=== PATIENT | female | born 1970 | race African-American/Black ===

== ENCOUNTER 2021-06-12 08:12 | Outpatient (CLI) | payer BC, SELFPAY ==
[2021-06-12 08:39] LABS: Basophils Percent Auto 1.1 % (0.2-1.2); Eosinophils Absolute Auto 0.1 K/mm3 (0-0.3); Eosinophils Percent Auto 2.5 % (0-4.4); Hematocrit 38.2 % (37.0-47.0); Hemoglobin 12.1 g/dL (12.0-15.0); Immature Granulocyte Absolute 0.01 K/mm3 (0.00-0.031); Immature Granulocyte Percent A 0.3 % (0-0.5); Lymphocytes Percent Auto 46.3 % (18.3-44.2); Mean Corpuscular HGB Conc 31.7 g/dl (32-36); Mean Corpuscular Hemoglobin 26.7 pg (26-34); Mean Corpuscular Volume 84.3 fl (80-100); Mean Platelet Volume 9.9 fl (7.4-10.4); Monocytes Absolute Auto 0.5 K/mm3 (0.1-0.6); Monocytes Percent Auto 12.5 % (2.6-8.5); Neutrophils Absolute Auto 1.4 K/mm3 (1.3-6.7); Neutrophils Percent Auto 37.3 % (45.5-73.1); Platelet Count Result 271 k/mm3 (150-375); Red Blood Count 4.53 M/mm3 (4.2-5.4); White Blood Count 3.7 K/mm3 (4.5-10.0)
== END 2021-06-12 08:13 | disposition home or self-care (01) ==
LOC: ANHSURGERY 08:18
PROVIDERS: PCP Internal Medicine; Visit Provider Student in an Organized Health Care Education/Training Program
DX: N92.0 Excessive and frequent menstruation with regular cycle (principal); Z01.818 Encounter for other preprocedural examination
CPT/HCPCS: 36415; 85025; 86850; 86900; 86901

== ENCOUNTER 2021-06-13 08:17 | Inpatient (IN) | payer BC, SELFPAY ==
[2021-06-11 15:09] VITALS: BMI 21.9
--- NOTE | 2021-06-11 15:10 | PC.NURSE ---
Report to the Outpatient Waiting Room, entrance under the green pavilion located off [facility], at time _0600 on date _06/13/21 . OR Time: __729 . - You and your visitor will be asked a series of questions to screen for COVID 19 for your protection. - A mask is required within the hospital. - Only one visitor is allowed at this time. Patient visitors will be guided where to wait when not with patient. Preoperative COVID Testing Requirements: No COVID Test needed if: (proof is required; if not received patient will have Rapid Test prior to entry) - Patient has received COVID Vaccine at least 14 days prior to procedure date or - Patient has positive COVID test result within last 90 days of surgery date. COVID Test needed if above criteria is not met If not COVID vaccinated a COVID test must be conducted within 72 hours of surgery and patient is asked to isolate self from time of testing until procedure. You will go to the [facility] for your COVID testing. The [facility] is located at the corner of [address] [facility]. You will only be called if COVID results are positive and your surgeon may reschedule your elective surgery date. Patients may have clear liquids (water, carbonated beverages, clear teas, apple juice) until 3 hours prior to surgery with a maximum of 20 ounces. - No food from midnight until time of surgery - Infants may have breast milk until 4 hours before surgery, formula 6 hours prior to surgery. - Children will be allowed to drink immediately following surgery. If applicable, please bring a bottle or sippy cup to assist with drinking. Juice, water, soda, and popsicles are readily available. For infants on formula, please bring formula the day of surgery. Pacifiers are allowed. Take the following medications with a SIP of water the morning of surgery: NONE Medications to discontinue per physician NONE Date to take last dose Please no make-up, nail serbian, hairspray, perfume, deodorant, or body powder the day of surgery. No jewelry (including any body piercings) or valuables the day of surgery, leave them at home. Please take a shower or bath the night before, or the morning of, surgery with an antibacterial soap. Wear comfortable, loose fitting clothing. Children are encouraged to wear pajamas. - Jewelry must be removed prior to entering the operating room. Rings and piercings that are not removed may be cut off. - The hospital will not accept responsibility for valuables. - Please leave all valuables, including medications, at home the day of surgery. If you are going home after surgery, a licensed regional flatbed truck driver must drive you home. - NO public transportation without another adult. - We recommend that an adult stay with you for 24 hours following discharge. - We also recommend that you do not drive, make important decision, drink alcoholic beverages, or take any drugs that were not prescribed by your health care provider for at least 24 hours after your discharge time. For Pediatric surgeries, we recommend two adults accompany the child home (only one inside the building at this time). Follow any additional instructions given to you from your surgeon. Telephone instructions given to ___PATIENT and asked if any additional questions and then verbalized understanding. Patient advised to call surgeon office or pre surgery nurse liaison [phone] if any additional questions.
--- NOTE | 2021-06-12 16:34 | PM.IMHP ---
H&P: HPI History of Present Illness Date/Time: 06/12/21 16:34 Patient is a 50yo woman with history of fibroid uterus and menorrhagia who presents for a scheduled hysterectomy. Patient has a long history of progressively worsening menorrhagia with saturation of clothing and passage of numerous blood clots. Pelvic US performed showed a large fibroid uterus. Patient was started on hormonal regulation by outside provider, however, still experienced significant heavy bleeding. She also experienced a syncopal episode just prior to menses a few months ago. Denies pelvic pain. Patient was counseled on possible management options and would like to proceed with definitive management with hysterectomy. In general, she reports feeling well today without complaints. Chief Complaint: Fibroid uterus Menorrhagia Review of Systems Review of Systems: All systems reviewed & are unremarkable except as noted in HPI and below Constitutional: Constitutional: Reports as per HPI, Reports no additional constitutional complaints, Denies chills, Denies fever(s), Denies headache(s) and Denies night sweats Eyes: Eyes: Reports as per HPI and Reports no additional eye complaints ENT: Reports system reviewed and no additional complaints, except as documented, Reports as per HPI, Reports Normal hearing present and Denies headache(s) Cardiovascular: Cardiovascular: Reports as per HPI, Reports no additional cardiovascular complaints, Denies chest pain and Denies dyspnea Respiratory: Respiratory: Reports as per HPI, Reports no additional respiratory complaints, Denies cough and Denies dyspnea Gastrointestinal: Gastrointestinal: Reports as per HPI, Reports no additional gastrointestinal complaints, Denies abdominal pain, Denies change in bowel habits, Denies change in stool character, Denies nausea and Denies vomiting Genitourinary: Genitourinary: Reports no additional female genitourinary complaints, Reports as per HPI, Denies abnormal vaginal bleeding, Denies genital lesions, Denies hot flashes, Denies dyspareunia, Denies pelvic pain, Denies sexual dysfunction, Denies urinary incontinence, Denies vaginal discharge, Denies vaginal dryness and Denies vaginal odor Musculoskeletal: Musculoskeletal: Reports no additional musculoskeletal complaints and Reports as per HPI Integumentary/Breasts: Skin/Breast: Reports system reviewed and no additional complaints, except as docu, Reports as per HPI, Denies breast pain and Denies nipple discharge Neurologic: Reports system reviewed and no additional complaints, except as documented, Reports as per HPI, Reports Normal hearing present and Denies headache(s) Psychiatric: Psychiatric: Reports no additional psychiatric complaints, Reports as per HPI, Denies anxiety and Denies depression Endocrine: Endocrine: Reports no additional endocrine complaints and Reports as per HPI Hematologic/Lymphatic: Hematologic/Lymphatic: Reports no additional hematologic/lymphatic complaints and Reports as per HPI Allergic/Immunologic: Allergic/Immunologic: Reports no additional allergic/immunologic complaints and Reports as per HPI PMFSH Past Medical History Medical History Scoliosis Surgical History Surgical History History of back surgery 1986, clamps and rods [place] teeth removed Social History Social History Smoking status: Never smoker Alcohol intake: current Alcohol use details: 1 PER YEAR Substance use: never Meds Home Medications and Allergies Home Medications Medication Instructions Recorded Confirmed Type No Home Medications 06/11/21 06/11/21 History Allergies Allergy/AdvReac Type Severity Reaction Status Date / Time No Known Allergies Allergy Verified 06/11/21 15:02 Exam Const: General: cooperative, healthy appearing, comfortable and no acute dist
[2021-06-13] VITALS (14 sets, daily range): BP systolic 119–175; BP diastolic 59–83; PULSE 79–100; RESP 14–20; TEMP 36.2–37.1; O2SAT 99–100
[2021-06-13] MEDS: ACETAMINOPHEN 500 MG TABLET 1000 MG PO (06:25)
[2021-06-13] MEDS: LACTATED RINGERS 1,000 ML 30 ML IV CONT ×2 (06:40→09:10)
[2021-06-13] MEDS: KETOROLAC 15 MG/ML VIAL (*BKC) IV PUSH (06:42)
--- NOTE | 2021-06-13 07:06 | P.PNAN_ITS ---
Anes - Initial Pre Proc Eval Procedure: Operation Date: 06/13/21 07:30 Proposed Procedures p Total Abdominal Hysterectomy with Bilateral Salpingectomy, Possible Bilateral Salpingo-Oophorectomy - Nara Walden MD Date/Time: 06/13/21 07:06 Surgeon: Nara Walden MD Pre Op Diagnosis: Abnormal Uterine Bleeding, Menorrhagia Patient Data Age: 50 Gender: F Height: 1.51 m Weight: 50 kg Allergies Allergy/AdvReac Type Severity Reaction Status Date / Time No Known Allergies Allergy Verified 06/13/21 06:19 Home Medications Medication Instructions Recorded Confirmed Type No Home Medications 06/11/21 06/11/21 History Patient hx anesthesia problems: none Family hx anesthesia problems: none Results Review: All pre-operative results and documents have been reviewed as part of the pre-operative evaluation. FORMERLY [facility], [facility] Past Medical History Medical History Scoliosis Surgical History Surgical History History of back surgery 1986, clamps and rods [place] teeth removed Social History Social History Smoking status: Never smoker Alcohol intake: current Alcohol use details: 1 PER YEAR Substance use: never Living arrangements: with family Anes - Eval Final PreProcedure Day of Procedure 06/13/21 07:06 Patient weight: normal Heart: regular rate and rhythm Lungs: clear to auscultation Airway: Mallampati scale class II Neurological: alert and oriented Last oral intake: >/= 8 hours ASA classification: II Emergent: no Anesthetic plan: proceed Anesthesia type and monitoring: general ETT and standard monitoring Results Review: All pre-operative results and documents have been reviewed as part of the pre-operative evaluation. Informed Consent: The patient's anesthetic plan and its attendant risks and benefits were discussed with the patient/family/POA. Questions were solicited and answers provided to the satisfaction of the patient/family/POA.
--- NOTE | 2021-06-13 07:10 | WPDHPUPDATE1 ---
History and Physical Update Update Date/Time: 06/13/21 07:10 Possible bilateral oophorectomy History and Physical has been reviewed, including an updated exam of the patient. There are NO changes in the patient's condition. Risks, benefits, and alternatives have been discussed and questions answered. Patient agrees to proceed with procedure.
[2021-06-13] MEDS: ceFAZolin 2 GM/D5W 50 ML 2 GM/50 ML BAG IVPB (07:24)
--- NOTE | 2021-06-13 09:54 | SUR.PHASEI ---
Simple mask removed at 0967.
--- NOTE | 2021-06-13 10:09 | W.PM.PROC2 ---
Procedure Note - Detailed Date of Procedure 06/13/21 Pre-op Diagnosis Abnormal Uterine Bleeding, Menorrhagia Fibroid uterus Post-op Diagnosis same Procedure Performed Total abdominal hysterectomy Bilateral salpingectomy Surgeon Nara Walden MD Coverstitch Elastic Attacher [facility] Anesthesia general Findings Approx. 16 week sized irregularly shaped uterus with multiple fibroids, normal appearing ovaries and fallopian tubes bilaterally, small 1cm left paratubal cyst noted Description of Procedure The patient was taken to the operating room where she self transferred to the operating room table. She was placed in the dorsal supine position. General anesthesia was administered and found to be adequate. A king catheter was placed using aseptic technique. The patient was prepped and draped in the usual sterile fashion. A Pfannenstiel skin incision was made with a scalpel and carried through to the underlying layer of fascia with the Bovie. The fascia was incised in the midline and the incision was extended laterally with the use of forceps and Addison scissors. The inferior aspect of the fascial incision was grasped with Heidi clamps, elevated, and the underlying rectus muscles were dissected off with Addison scissors. Attention was turned to the superior aspect of the fascial incision, which in a similar manner was grasped with Heidi clamps, elevated, and the underlying rectus muscles also dissected off with Addison scissors. The rectus muscles were gently retracted and the peritoneal cavity was entered bluntly. The peritoneal cavity was gently stretched. The uterus was palpated beneath and was approx. 16w size and very irregularly shaped with multiple fibroids noted. The uterus was grasped and elevated through the incision. On inspection, the uterus was irregularly shaped with multiple fibroids of various sizes on all sides. The ovaries and fallopian tubes appeared normal bilaterally. A small 1cm paratubal cyst was seen on left side. A pean clamp was placed near the right uterine cornua for traction and elevation. The right round ligament was identified, grasped with Donnellson clamp, and suture ligated. The round ligament was transected with Bovie. The anterior leaf of the broad ligament was carefully dissected towards the midline to begin creation of bladder flap. The right fallopian tube was identified and grasped with a Ok clamp. The LigaSure device was used to transect the mesosalpinx beneath the tube to the level of the cornua. An incision in the posterior leaf of the broad ligament on the right side was created with the Bovie. The LigaSure device was then used to transect the utero-ovarian ligament on the right side. Dissection of the posterior leaf of the broad ligament was performed. The uterine artery was well skeletonized and cauterized with the LigaSure. Attention was then turned to the patient's left side. A pean clamp was placed near the left uterine cornua for traction and elevation. The left round ligament was identified, grasped with a Donnellson clamp, and suture ligated. The round ligament was transected with the Bovie and the anterior leaf of the broad ligament was carefully dissected towards the midline. The opposing ends were joined in the midline and careful dissection was performed to displace the bladder inferiorly. Dissection was primarily performed with the use of bovie and gauze. The bladder was depressed inferiorly well below the level of the anterior cervix. The left fallopian tube was identified and grasped with Ok clamp. The LigaSure device was used to transect the mesosalpinx beneath the tube to the level of the cornua. The LigaSure device was then used to transect the utero-ovarian ligament on the left side. Dissection of the posterior leaf of the broad ligament was performed and the uterine artery was skeletonized and well visualized. The LigaSure device was then used to cauterize the uterine artery on the left side. The cardinal ligaments we
--- NOTE | 2021-06-13 10:27 | SUR.PHASEI ---
Patient's vitals are stable and has met criteria to go to the floor, but I still don't have any orders.
--- NOTE | 2021-06-13 11:28 | PC.NURSE ---
This patient, Lluvia Townsend, was received from PACU per bed on 06/13/21 at 1128. Patient sleeping, but able to arouse in order to orient to unit and routines
[2021-06-13] MEDS: DEXTROSE 5%/0.45% SOD CHL 1,000 ML 125 ML IV CONT ×2 (12:30→21:02)
[2021-06-13] MEDS: IBUPROFEN IV 800 MG/200 ML 800 MG/200 ML BAG 400 MG IVPB ×2 (12:31→18:30)
[2021-06-14 00:25] VITALS: BP 95/47; PULSE 109; RESP 16; TEMP 36.9; O2SAT 99
[2021-06-14] MEDS: ONDANSETRON INJ 4 MG/2 ML VIAL IV PUSH (01:08)
[2021-06-14] MEDS: IBUPROFEN IV 800 MG/200 ML 800 MG/200 ML BAG 400 MG IVPB ×2 (01:17→06:59)
[2021-06-14] MEDS: DEXTROSE 5%/0.45% SOD CHL 500 ML 999 ML IV CONT (01:54)
[2021-06-14] MEDS: DEXTROSE 5%/0.45% SOD CHL 1,000 ML 125 ML IV CONT (02:19)
[2021-06-14 03:45] VITALS: BP 85/47; PULSE 114; RESP 16; TEMP 37.7; O2SAT 100
[2021-06-14] MEDS: HYDROmorphone HCL INJ (*CRX) 1 MG/ML SYR 0.2 MG IV PUSH (04:27)
[2021-06-14] MEDS: SODIUM CHLORIDE 0.45% 500 ML 999 ML IV CONT (04:33)
[2021-06-14 06:45] VITALS: BP 108/57; PULSE 97; RESP 18; TEMP 36.8
--- NOTE | 2021-06-14 08:37 | PC.NURSE ---
Dr. Walden here to see pt. Update given. Advised to increase IV fluids to 150 cc/hr for better urine output.
--- NOTE | 2021-06-14 08:49 | PM.GYNPNOP ---
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 Assessment and plan (1) S/P abdominal hysterectomy: Code(s): Z90.710 - Acquired absence of both cervix and uterus Status: Acute Assessment and Plan: POD#1 doing well encourage ambulation and use of IS advance diet as tolerated continue IV fluids for now until increased PO intake continue to monitor I/O, output adequate, however, low normal pain management PRN Postoperative Procedures: Procedures Operation Date: 06/13/21 07:30 Actual Procedure Side Surgeon p Total Abdominal Hysterectomy with Bilateral Salpingectomy Bilateral Nara Walden MD Time Spent With Patient Time: Total time spent is greater than 50% in coordination of care (as documented) at patient's floor/unit and/or counseling patient: Time with patient: less than 15 minutes HARDBOARD FACTORY WORKER- PN:Subj Post-Op Subjective Date/time seen: 06/14/21 08:49 Patient reports right sided pain overnight, alleviated with IV medication. She also reported feeling slightly dizzy last night as well. This morning, patient denies any further dizziness or pain. She denies any headache, chest pain, SOB, nausea or vomiting. Small amount of clear fluid intake last night. Warner catheter in place. No flatus. No ambulation yet. Exam Const: General: cooperative, healthy appearing, comfortable and no acute distress GI: GI Palp: Yes Soft to palpation and No Tenderness to palpation present (GI) Other: softly distended incision c/d/i Extrem: Right lower extremity: no edema Left lower extremity: no edema Other: no calf tenderness HARDBOARD FACTORY WORKER - PN: Obj Data Vital Signs Vital Signs: Vital Signs - 24 hr 06/13/21 09:10 06/13/21 09:25 06/13/21 09:30 Temperature 36.2 C L Pulse Rate 79 84 94 Respiratory Rate 14 14 16 Blood Pressure 119/70 128/73 125/77 Pulse Oximetry 100 100 100 06/13/21 09:40 06/13/21 09:55 06/13/21 10:10 Temperature Pulse Rate 90 95 91 Respiratory Rate 14 18 20 Blood Pressure 138/70 155/82 H 147/76 H Pulse Oximetry 100 99 99 06/13/21 10:25 06/13/21 10:40 06/13/21 10:55 Temperature Pulse Rate 89 90 86 Respiratory Rate 16 17 16 Blood Pressure 153/65 H 154/59 H 150/62 H Pulse Oximetry 99 99 99 06/13/21 11:05 06/13/21 11:35 06/13/21 17:20 Temperature 37.1 C 36.4 C L Pulse Rate 86 88 92 Respiratory Rate 14 16 18 Blood Pressure 151/60 H 154/68 H 122/59 L Pulse Oximetry 99 100 06/13/21 18:36 06/14/21 00:25 06/14/21 03:45 Temperature 36.9 C 36.9 C 37.7 C H Pulse Rate 100 109 H 114 H Respiratory Rate 16 16 16 Blood Pressure 132/72 95/47 L 85/47 L Pulse Oximetry 99 100 06/14/21 06:45 Temperature 36.8 C Pulse Rate 97 Respiratory Rate 18 Blood Pressure 108/57 L Pulse Oximetry Intake/Output Intake/Output: Intake & Output 06/11/21 06/12/21 06/13/21 06/14/21 23:59 23:59 23:59 23:59 Intake Total 3750 1400 Output Total 1005 405 Balance 2745 995 Meds/Results Medications: Active Medications Generic Name Dose Route Start Last Admin Trade Name Freq PRN Reason Stop Dose Admin Dextrose/Sodium Chloride 1,000 mls @ 150 mls/hr 06/13/21 11:10 06/14/21 02:19 Dextrose 5% Sodium Chloride 0.45% IV CONT 125 mls/hr .[id number] PENELOPE Administration Ondansetron HCl 4 mg 06/13/21 11:10 06/14/21 01:08 Ondansetron Inj 4 Mg/2 Ml Vial IV PUSH 4 mg Q6H PRN Administration Nausea
--- NOTE | 2021-06-14 10:28 | WPDANESPN ---
Anes - Prog Note Post-Op Date/Time: 06/14/21 10:28 Cardiovascular status: normal Respiratory status: normal Airway patency: baseline Mental status: baseline Post-Op hydration status: normal Vital Signs: Last Vital Signs Temp 36.8 C 06/14/21 06:45 Pulse 97 06/14/21 06:45 Resp 18 06/14/21 06:45 BP 108/57 L 06/14/21 06:45 Pulse Ox 100 06/14/21 03:45 Pain Score (VAS): 2/10 I/O: Intake & Output 06/13/21 06/14/21 06/14/21 23:59 07:59 15:59 Intake Total 1400 1400 Output Total 925 405 Balance 475 995 Post-procedural complaints: none Patient Feedback: Patient satisfied with anesthetic care.
[2021-06-14 14:00] VITALS: BP 108/60; PULSE 117; RESP 18; TEMP 36.9
[2021-06-14 19:40] VITALS: BP 131/69; PULSE 122; RESP 18; TEMP 36.8
[2021-06-14] MEDS: SIMETHICONE 80 MG TAB.CHEW PO (19:49)
[2021-06-15 00:20] VITALS: BP 110/48; PULSE 115; RESP 16; TEMP 37
[2021-06-15] MEDS: IBUPROFEN 600 MG TABLET PO (01:17)
--- NOTE | 2021-06-15 07:19 | P.PNOB_ITS ---
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 No hypovolemic symptoms. Urinating well. No hypovolemic symptoms. Will discharge today. Discharge precautions discussed. Postoperative Procedures: Procedures Operation Date: 06/13/21 07:30 Actual Procedure Side Surgeon p Total Abdominal Hysterectomy with Bilateral Salpingectomy Bilateral Nara Walden MD Time Spent With Patient Time: Total time spent is greater than 50% in coordination of care (as documented) at patient's floor/unit and/or counseling patient: Time with patient: less than 15 minutes BIOMETRICS TECHNICIAN- PN:Subj Post-Op Subjective Date/time seen: 06/15/21 07:19 She states positive flatus yesterday. Has ambulated without problems. No chest pain or SOB. No lightheadedness or dizziness. Has adequate pain control. Had episode of emesis yesterday. Has had regular diet since and tolerated no emesis. Good urine output. Exam Const: General: comfortable and no acute distress Eyes: General: appearance normal, both eyes and all related structures Resp: Effort & Inspection: normal respiratory effort Auscultation: clear to auscultation bilaterally Cardio: Rate: regular rate (mildly tachy) GI: Inspection: normal to inspection Other: nontender, nondistended, good BS throughout, incision c/d/i Extrem: General: normal to inspection Other: no edema, no calf tenderness BIOMETRICS TECHNICIAN - PN: Obj Data Vital Signs Vital Signs: Vital Signs - 24 hr 06/14/21 14:00 06/14/21 19:40 06/15/21 00:20 Temperature 98.5 F 98.3 F 98.6 F Pulse Rate 117 H 122 H 115 H Respiratory Rate 18 18 16 Blood Pressure 108/60 131/69 110/48 L Intake/Output Intake/Output: Intake & Output 06/12/21 06/13/21 06/14/21 06/15/21 23:59 23:59 23:59 23:59 Intake Total 3750 2100 0 Output Total 1005 1710 350 Balance 2745 390 -350 Meds/Results Medications: Active Medications Generic Name Dose Route Start Last Admin Trade Name Freq PRN Reason Stop Dose Admin Hydrocodone Bitart/Acetaminophen 1 tab 06/14/21 08:58 Hydrocodone/Acetaminophen (*Crx) 5-325 Mg Tablet PO Q4H PRN Pain Rated 4-6 Ibuprofen 600 mg 06/14/21 08:58 06/15/21 01:17 Ibuprofen 600 Mg Tablet PO 600 mg Q6H PRN Administration Pain Rated 1-3 Ondansetron HCl 4 mg 06/13/21 11:10 06/14/21 01:08 Ondansetron Inj 4 Mg/2 Ml Vial IV PUSH 4 mg Q6H PRN Administration Nausea Simethicone 80 mg 06/14/21 09:00 06/14/21 19:49 Simethicone 80 Mg Tab.Chew PO 80 mg QID PRN Administration Abdominal Distention
[2021-06-15 07:28] VITALS: BP 104/56; PULSE 116; RESP 12; TEMP 36.6; O2SAT 100
--- NOTE | 2021-06-15 07:29 | PM.DS ---
DS: Admitting Diagnosis Discharge Date 06/15/21 Admitting Diagnosis Symptomatic fibroid uterus DS: Discharge Diagnosis Discharge Diagnosis (1) Fibroid uterus: Code(s): D25.9 - Leiomyoma of uterus, unspecified Status: Acute (2) Menorrhagia: Code(s): N92.0 - Excessive and frequent menstruation with regular cycle Status: Acute (3) S/P abdominal hysterectomy: Code(s): Z90.710 - Acquired absence of both cervix and uterus Status: Acute DS: Summary Hospital Course Reason for hospitalization: Scheduled surgery for symptomatic fibroid uterus. Hospital Course: Patient underwent uncomplicated abdominal hysterectomy. Post op she had tachycardia and low blood pressures, asymptomatic, good urine output. On post op day one she had positive flatus. She was ambulating without difficulty and tolerating regular diet. Pain was controlled with the oral pain medication. She was discharge to home on post op day 2. Status at Discharge Functional status at discharge: independent ambulation Overall status at discharge: patient is progressing back to baseline Time Spent with Patient Time attestation: Total time spent providing and/or coordinating discharge services: Exam Const: General: comfortable and no acute distress Orientation/consciousness: oriented to person, oriented to place and oriented to time Eyes: General: appearance normal, both eyes and all related structures Resp: Effort & Inspection: normal respiratory effort Auscultation: clear to auscultation bilaterally Cardio: Rate: regular rate and tachycardic GI: Inspection: normal to inspection Other: good bowel sounds, incision c/d/i Neuro: General: oriented to person, oriented to place and oriented to time Extrem: General: normal to inspection and no calf tenderness Psych: Appearance: grossly normal DS: Data Data Completed and Pending Pending studies at discharge: Pending at discharge 06/13/21 08:56 Surgical [PTH] Routine Discharge Plan Discharge Attending physician on discharge: Nara Walden Consulting providers: Remy Penn Discharging Clinician: Christiano Shahid Anticipated Discharge Date/Time: 06/15/21 07:24 Patient Disposition: Home, Self-Care Activity: no straining, no driving and pelvic rest Diet: regular Wound Care Instructions: other - see discharge instructions Discharge Instructions: Call for fever, vaginal bleeding, leg pain or swelling, persistent nausea/vomiting. Keep follow up appointment. Patient Instructions: Antibiotic Form Stand Alone Forms: General Discharge Information Follow-up/Referrals: Nara Walden MD [Physician] - Keep Reg. Scheduled Appt. Discharge Medications: New hydrocodone-acetaminophen 5-325 mg Tablet 1 tablet PO Q4H PRN (Reason: Pain Rated 4-6) Qty: 30 RF: 0 No Action No Home Medications RF: 0 Date of admission: 06/13/21 08:17 Primary Care Provider: CARLIN,YASMIN [place] Admitting Provider: Nara Walden Attending physician on admission: Nara Walden Condition: Stable
== END 2021-06-15 11:55 | disposition home or self-care (01) | DRG 743 ==
LOC: ANHOB2 11:41
PROVIDERS: Admitting Provider Student in an Organized Health Care Education/Training Program; PCP Internal Medicine; Visit Provider Student in an Organized Health Care Education/Training Program
PROC: 0UT94ZZ Resection of Uterus, Percutaneous Endoscopic Approach (ICD-10-PCS; principal; 2021-06-13 07:30)
DX: D25.9 Leiomyoma of uterus, unspecified (principal); N92.0 Excessive and frequent menstruation with regular cycle; N83.8 Other noninflammatory disorders of ovary, fallopian tube and broad ligament
CPT/HCPCS: 88307; A9270; J0131; J0690; J1100; J1170; J1741; J1885; J2250; J2405; J2704; J2710; J3010; J7120

== ENCOUNTER 2022-01-22 12:44 | Emergency (ER) | payer BC, SELFPAY ==
[2022-01-22 12:53] VITALS: BP 162/85; PULSE 87; RESP 16; TEMP 36.9; O2SAT 100
--- NOTE | 2022-01-22 13:17 | ED.EAR ---
HPI - Ear Problem General Chief complaint: Ear Stated complaint: Ear Pain Time Seen by Provider: 01/22/22 13:17 Source: patient Mode of arrival: ambulatory Limitations: no limitations History of Present Illness HPI Narrative: 51-year-old female presents with complaint of right ear pain. Reports drainage, decreased hearing. Afebrile. Denies any recent swimming. All systems reviewed and negative except as noted above. Related Data Allergies Allergy/AdvReac Type Severity Reaction Status Date / Time No Known Allergies Allergy Verified 01/22/22 13:02 Review of Systems Review of Systems: CONSTITUTIONAL: Denies fever, chills, or sweats. EYES: Denies visual changes, redness, or discharge. ENT: Denies rhinorrhea, congestion, sore throat. Reports right ear pain. CARDIOVASCULAR: Denies chest pain, palpitations, or edema. RESPIRATORY: Denies cough or dyspnea. GASTROINTESTINAL: Denies abdominal pain, nausea, vomiting, or diarrhea. GENITOURINARY: Denies dysuria or hematuria. SKIN: Denies rash or itching. MUSCULOSKELETAL: Denies back pain, joint pain, or myalgia. NEUROLOGIC: Denies headache, numbness, or weakness. PSYCHIATRIC: Denies anxiety or depression. All other systems reviewed are negative, except as documented in HPI. PMFSH Past Medical History Medical History Scoliosis Surgical History Surgical History History of back surgery 1986, clamps and rods S/P abdominal hysterectomy 06/13/21 [place] teeth removed Social History Social History Smoking status: Never smoker Alcohol intake: current Alcohol use details: 1 PER YEAR Substance use: never Comments At time of signature, agree with nursing past medical, surgical, social and family history. There is no relevant family history pertinent to the presenting complaint. Exam Narrative: GENERAL: This is a well-nourished, well-developed patient, in no apparent distress. HEAD: normocephalic, atraumatic. EYES: PERRL. Sclera clear/white. Vision is grossly intact. EARS: External ears normal. Left ear canal and left TM normal. Right canal is erythematous, swollen completely closed, cannot evaluate TM. NOSE: External nose normal NECK: Neck supple, non-tender without lymphadenopathy, masses or thyromegaly. CARDIOVASCULAR: Regular rate and rhythm without murmurs, gallops, or rubs. RESPIRATORY: Clear to auscultation. Breath sounds equal bilaterally. No wheezes, rales, or rhonchi. SKIN: warm, Dry, intact with no suspicious lesions or rash, good texture and turgor. NEURO: awake, alert, and oriented to person, place and time. There were no obvious focal neurologic abnormalities. EXTREMITIES: No joint tenderness, effusion, or edema noted. Course Course Level of Care: Express Care Visit Vital Signs Vital signs: Vital Signs Temperature 36.9 C 01/22/22 12:53 Pulse Rate 87 01/22/22 12:53 Respiratory Rate 16 01/22/22 12:53 Blood Pressure 162/85 H 01/22/22 12:53 Pulse Oximetry 100 01/22/22 12:53 Oxygen Delivery Room Air 01/22/22 12:53 Temperature 36.9 C 01/22/22 12:53 Pulse Rate 87 01/22/22 12:53 Respiratory Rate 16 01/22/22 12:53 Blood Pressure 162/85 H 01/22/22 12:53 Pulse Oximetry 100 01/22/22 12:53 Oxygen Delivery Room Air 01/22/22 12:53 Reviewed Procedures Other Procedure Procedure 1: Other Procedure: Earwick placed to right ear canal using a forcep. Medical Decision Making MDM Narrative Medical decision making narrative: Patient is aware of diagnosis, understands and agrees to treatment plan. Anticipatory guidance given. Patient agrees to follow-up as directed and is aware of reasons to seek care at the emergency department. Portions of this record may have been created with voice recognition software Vital Signs Vital Signs:
--- NOTE | 2022-01-22 13:40 | PC.NURSE ---
01/22/22 AT 1329, EAR WICK PLACED AND EXPANDED WITH DROPS OF SALINE BY PROVIDER FLOR Dumont NP. PATIENT TOLERATED WELL.
== END 2022-01-22 13:29 | disposition home or self-care (01) ==
PROVIDERS: Emergency Provider Nurse Practitioner Family
DX: H60.91 Unspecified otitis externa, right ear (principal); M41.9 Scoliosis, unspecified
CPT/HCPCS: 99213; G0463

== ENCOUNTER 2023-05-22 11:02 | Outpatient (CLI) | payer BC, SELFPAY ==
--- NOTE | ~2023-05-22 | MM_ITS ---
EXAMINATION: MM screening [facility] BI w charlie HISTORY: Screening mammogram TECHNIQUE: Craniocaudal and mediolateral oblique 3-D tomosynthesis images were obtained and synthetic 2-D images were generated. CAD analysis was submitted and interpreted. COMPARISON: No prior mammogram is available for comparison at this institution. BREAST PARENCHYMAL COMPOSITION: The breasts are extremely dense, which lowers the sensitivity of mamm ography. FINDINGS: No suspicious mass, calcification, or architectural distortion are identified in either gra[place] ast to suggest malignancy. There has been no suspicious interval change. IMPRESSION: 1. No mammographic evidence of malignancy. 2. Recommend routine screening mammography in one year. BI-RADS Category 1: Negative Reviewed, dictated and finalized at location A.
== END 2023-05-22 11:03 | disposition home or self-care (01) ==
LOC: ANHIMG 11:08
PROVIDERS: Visit Provider Registered Nurse
DX: Z12.31 Encounter for screening mammogram for malignant neoplasm of breast (principal)
CPT/HCPCS: 77063; 77067